=== PATIENT | female | born 1945 | race Caucasian/White ===

== ENCOUNTER 2022-06-03 11:01 | Emergency (ER) | payer BC ==
[~2022-06-03] VITALS: Ht 154.9 cm; Wt 70.0 kg
[2022-06-03 11:17] VITALS: BP 137/89
[2022-06-03] MEDS ORDERED: ACETAMINOPHEN 325MG TABLET PO ONE (12:15)
[2022-06-03] MEDS ORDERED: IBUP-2028 MT (12:44)
[2022-06-03] MEDS ORDERED: ACET-2708 MT (12:44)
== END 2022-06-03 13:37 | disposition home or self-care (01) ==
LOC: ER 12:19
DX: S52.91XA Unspecified fracture of right forearm, initial encounter for closed fracture (principal); W18.39XA Other fall on same level, initial encounter; Y93.89 Activity, other specified; Y92.89 Other specified places as the place of occurrence of the external cause; Y99.8 Other external cause status; E78.00 Pure hypercholesterolemia, unspecified; I10 Essential (primary) hypertension; Z98.890 Other specified postprocedural states
CPT/HCPCS: 29125; 73090; 73120; 99284